=== PATIENT | male | born 1975 | race Hispanic/Latino ===

== ENCOUNTER 2020-07-11 01:51 | Inpatient (IN) | payer OTHER, SELFPAY ==
[2020-07-11] MEDS ORDERED: Fentanyl 100 MCG/2 ML VIAL ONE ×3 (01:59→11:30)
[2020-07-11 02:15] LABS: #Eosinphils 0.4 thou/uL (0.0-0.7); #Lymphocytes 1.8 thou/uL (1.20-3.40); #Monocytes 1.3 thou/uL (0.11-0.59); #Neutrophils 14.5 thou/uL (1.40-6.50); %Basophils 0.3 % (0.0-1.0); %Eosinophils 2.1 % (0.0-10.0); %Monocytes 7.4 % (0.0-10.0); %Neutrophils 80.3 % (42.0-75.0); Mean Corpuscular HGB CONC 32.4 g/dL (32.0-36.0); Mean Corpuscular Hemoglobin 25.9 pg (27.0-31.0); Mean Platelet Volume 8.2 fL (7.4-10.4); Platelet Count 272 thou/uL (130-400); RBC Distribution Width 17.1 % (11.5-14.5); Red Blood Cell (RBC) Count 4.24 mill/uL (4.70-6.10); White Blood Cell (WBC) Count 18.1 thou/uL (4.8-10.8)
[2020-07-11] MEDS ORDERED: Boostrix 0.5 ML (Tdap) VIAL ONE (02:31)
[2020-07-11] MEDS ORDERED: CEFAZOLIN 1 GM VIAL ONE ×2 (02:32→15:49)
[2020-07-11 02:34] LABS: Albumin 3.7 g/dL (3.5-5.0)
[2020-07-11 02:36] LABS: Calcium 7.4 mg/dL (7.8-10.44); Chloride 102 mmol/L (98-107); Potassium 3.5 mmol/L (3.5-5.1); Sodium 135 mmol/L (136-145)
[2020-07-11 02:37] LABS: Globulin 2.9 g/dL (2.4-3.5); Glucose 165 mg/dL (70-105); Protein, Total 6.6 g/dL (6.0-8.3)
[2020-07-11 02:38] LABS: Anion Gap 17 mmol/L (10-20); Carbon Dioxide 20 mmol/L (22-29)
[2020-07-11 02:39] LABS: Bilirubin, Total 0.3 mg/dL (0.2-1.2)
[2020-07-11 02:40] LABS: Alkaline Phosphatase 65 U/L (40-110); Calc. Creatinine Clearance 0 mL/min (70-130)
[2020-07-11 02:41] LABS: BUN (Urea Nitrogen) 10 mg/dL (8.9-20.6)
[2020-07-11 02:42] LABS: AST (SGOT) 51 U/L (5-34)
[2020-07-11 02:43] LABS: ALT (SGPT) 34 U/L (8-55)
[2020-07-11 02:55] LABS: Actual Bicarbonate (HCO3a) 19.3 mEq/L (22-28); Analyzer IN Cardio ER; Base Excess (BEa) -6.2 mEq/L (-2.0 to +3.0); CO2 Tension 37.8 mmHg (35.0-45.0); Carboxyhemoglobin (COHb) 0.3 gm% (0.0-3.0); Hemoglobin (Hb) 10.3 g/dL (14.0-18.0); Potassium - ABG Lab 3.16 mmol/L (3.70-5.30); pH, Arterial 7.33 (7.35-7.45)
[2020-07-11 02:56] LABS: Puncture Site RBA
[2020-07-11] MEDS ORDERED: fentaNYL Citrate/PF 2,000 MCG in Sodium Chloride 0.9% 60 ML IV SCH (03:00)
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
[2020-07-11] MEDS ORDERED: cefTRIAXone\\ROCEPHIN 1 GM VIAL ONE (03:30)
[2020-07-11] MEDS ORDERED: Calcium Chloride 13.6 MEQ in Sodium Chloride 0.9% 100 ML IVPB SCH ×2 (04:00→20:30)
[2020-07-11] MEDS ORDERED: Dextrose 5% in Water 1,000 ML IV PRN (04:12)
[2020-07-11] MEDS ORDERED: Ondansetron ODT 4 MG TAB PO PRN (04:12)
[2020-07-11] MEDS ORDERED: Ventilator Sedation Protocol 1 EACH FS SCH (04:12)
[2020-07-11] MEDS ORDERED: Dextrose 50% Abboject 50 ML SYRINGE SLOW IVP PRN (04:12)
[2020-07-11] MEDS ORDERED: Ondansetron PF 4 MG/2 ML Vial IVP PRN (04:12)
[2020-07-11] MEDS ORDERED: diphenhydrAMINE 50 MG/ML VIAL IVP SCH (04:15)
[2020-07-11] MEDS: Propofol 1,000 MG/100 ML VIAL IV PRN ×3 (04:25→21:02)
[2020-07-11 04:27] VITALS: BMI 34.6
[2020-07-11] MEDS ORDERED: Sodium Chloride 0.9% 1,000 ML IV SCH ×4 (04:30→19:00)
[2020-07-11] MEDS ORDERED: Morphine 2 MG/ML VIAL SLOW IVP PRN (04:30)
[2020-07-11] MEDS ORDERED: Fentanyl BOLUS 250 ML IVPB PRN (04:30)
[2020-07-11] MEDS ORDERED: Lorazepam 2 MG/ML VIAL SLOW IVP PRN (04:30)
[2020-07-11] MEDS ORDERED: Propofol BOLUS 1,000 MG/100 ML VIAL IV PRN (04:30)
[2020-07-11] MEDS ORDERED: DISCONTINUE PREVIOUS NARCOTIC PAIN MEDICATIONS AND BENZODIAZEPINES FS SCH (04:30)
[2020-07-11 04:37] LABS: SARS-CoV-2 NAA Rapid Test Not Detected (NotDetected)
[2020-07-11 06:01] LABS: Magnesium 1.8 mg/dL (1.6-2.6)
[2020-07-11] MEDS ORDERED: Magnesium Sulfate 3 GM in Sodium Chloride 0.9% 250 ML 250 ML IVPB SCH (06:30)
[2020-07-11] MEDS ORDERED: cefTRIAXone\\ROCEPHIN 2 GM in Sodium Chloride 0.9% 100 ML IVPB SCH (06:45)
[2020-07-11 06:55] LABS: Bacteria/HPF None Seen HPF (None Seen); Bilirubin Negative (Negative); Blood, Urine 3+ (Negative); Clarity Clear (Clear); Glucose, Urine (Dipstick) Normal (Negative); Ketone, Urine Negative (Negative); Leukocyte Negative Leu/uL (Negative); Nitrite Negative (Negative); Protein, Urine (Dipstick) Negative (Neg-Trace); RBC/HPF None Seen HPF (0-3); Specific Gravity, Urine 1.034 (1.002-1.036); Squamous Epithelial None Seen HPF (0-3); Urobilinogen Normal mg/dL (Less than 2); WBC/HPF 0-3 HPF (0-3); pH, Urine 5.5 (5.0-9.0)
[2020-07-11 07:04] LABS: Urine Culture Reflex No No
[2020-07-11 07:05] LABS: Cocaine Metabolite Screen Detected (NotDetected); Medtox Reader # READER 4; Methamphetamine Detected (NotDetected); Opiate Screen Not Detected (NotDetected); Phencyclidine (PCP) Not Detected (NotDetected); THC/Cannabinoid Screen Not Detected (NotDetected)
[2020-07-11 07:06] LABS: Amphetamine Detected (NotDetected); Barbiturates Screen Not Detected (NotDetected); Benzodiazepine Screen Not Detected (NotDetected); Medtox Control Line Valid? VALID (VALID); Methadone Not Detected (NotDetected); Oxycodone Screen Not Detected (NotDetected); Tricyclic Screen Not Detected (NotDetected)
[2020-07-11 07:07] LABS: Prothrombin Time 13.5 sec (12.0-14.7)
[2020-07-11 07:16] LABS: Actual Bicarbonate (HCO3a) 19.4 mEq/L (22-28); Base Excess (BEa) -4.7 mEq/L (-2.0 to +3.0); CO2 Tension 32.6 mmHg (35.0-45.0); Calcium, Ionized (arterial) 1.13 mmol/L (1.12-1.30); Carboxyhemoglobin (COHb) 0.5 gm% (0.0-3.0); O2 Tension (PaO2), arterial 148.8 mmHg (80.0-100.0); Potassium - ABG Lab 3.38 mmol/L (3.70-5.30); pH, Arterial 7.39 (7.35-7.45)
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
[2020-07-11 07:57] LABS: Puncture Site RBA
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
[2020-07-11] MEDS: Famotidine/PF 20 mg/2ml Vial SLOW IVP SCH ×2 (08:42→21:01)
[2020-07-11] MEDS ORDERED: FLU VACC QS2020-21(6MOS UP)/PF 60 MCG/0.5 ML SYRINGE IM ONE (09:00)
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
--- NOTE | 2020-07-11 09:31 | RAD ---
PORTABLE CHEST: HISTORY: CCU followup on ventilator. COMPARISON: 07/11/2020. FINDINGS/IMPRESSION: No evidence of confluent infiltrate or consolidation. Congestive changes appear improved. No acute interval change. POS: AGW
[2020-07-11] MEDS: Sodium Chloride 0.9% 1,000 ML IV SCH ×2 (09:32→16:37)
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
[2020-07-11] MEDS ORDERED: Rocuronium Bromide 10 MG/ML (10ML VIAL) ONE (09:43)
[2020-07-11] MEDS ORDERED: ePHEDrine 50 MG/ML VIAL ONE (09:43)
[2020-07-11] MEDS ORDERED: Vecuronium 10 MG VIAL ONE (09:43)
[2020-07-11] MEDS ORDERED: PHENYLEPHRINE-NS 100 MCG/ML 10 ML SYRINGE ONE (09:43)
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
[2020-07-11 10:11] LABS: White Blood Cell (WBC) Count 7.3 thou/uL (4.8-10.8)
[2020-07-11 10:31] LABS: Hemoglobin 9.9 g/dL (14.0-18.0); Mean Corpuscular HGB CONC 32.3 g/dL (32.0-36.0); Mean Corpuscular Hemoglobin 26.2 pg (27.0-31.0); Mean Corpuscular Volume 81.1 fL (78.0-98.0); Mean Platelet Volume 8.1 fL (7.4-10.4); Platelet Count 204 thou/uL (130-400); RBC Distribution Width 16.7 % (11.5-14.5); Red Blood Cell (RBC) Count 3.76 mill/uL (4.70-6.10)
[2020-07-11 10:32] LABS: Band 11 % (5-11); Eosinophils 2 % (0-10); Lymphocytes 33 % (21-51); MDiff Complete? YES; Monocytes 11 % (0-10); Neutrophil 42 % (42-75)
[2020-07-11] MEDS: Acetaminophen 650 MG/20.3 ML UDCUP PO SCH ×3 (11:05→23:04)
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
[2020-07-11] MEDS ORDERED: HYDROmorphone 2 MG/ML VIAL ONE (12:10)
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
[2020-07-11] MEDS ORDERED: Iopamidol-370 76% 500 ML 1 ML ONE (14:21)
[2020-07-11] MEDS ORDERED: Phenylephrine 10 MG/ML VIAL ONE (14:23)
[2020-07-11] MEDS ORDERED: Midazolam HCl 2 mg/2 ml Vial ONE (15:49)
[2020-07-11 17:04] LABS: INR-International Normal Ratio 1.2; PTT 31.5 sec (22.9-36.1); Prothrombin Time 15.7 sec (12.0-14.7)
[2020-07-11 17:16] LABS: Lactic Acid 5.8 mmol/L (0.5-2.2)
[2020-07-11 17:21] LABS: Anisocytosis SLIGHT = 6-15 cells (100X) (0-5/hpf); Band 53 % (5-11); Eosinophils 1 % (0-10); Hemoglobin 11.4 g/dL (14.0-18.0); Lymphocytes 5 % (21-51); MDiff Complete? YES; Mean Corpuscular HGB CONC 32.4 g/dL (32.0-36.0); Mean Corpuscular Hemoglobin 28.2 pg (27.0-31.0); Mean Corpuscular Volume 87.1 fL (78.0-98.0); Mean Platelet Volume 8.3 fL (7.4-10.4); Metamyelocyte 1 % (0-0); Monocytes 9 % (0-10); Myelocyte 1 % (0-0); Neutrophil 28 % (42-75); Platelet Count 172 thou/uL (130-400); Platelet Morphology Comment Appears Adequate; Polychromasia SLIGHT = 2-3 cells (100X) (0-2/hpf); RBC Distribution Width 15.7 % (11.5-14.5); Reactive Lymphocytes 2 % (0-10); Red Blood Cell (RBC) Count 4.06 mill/uL (4.70-6.10); White Blood Cell (WBC) Count 11.7 thou/uL (4.8-10.8)
[2020-07-11 17:22] LABS: Anion Gap 19 mmol/L (10-20); BUN (Urea Nitrogen) 12 mg/dL (8.9-20.6); Calc. Creatinine Clearance 93 mL/min (70-130); Calcium 6.4 mg/dL (7.8-10.44); Carbon Dioxide 15 mmol/L (22-29); Chloride 110 mmol/L (98-107); Glucose 165 mg/dL (70-105); Magnesium 2.2 mg/dL (1.6-2.6); Phosphorus 6.2 mg/dL (2.3-4.7); Potassium 4.7 mmol/L (3.5-5.1); Sodium 139 mmol/L (136-145)
[2020-07-11 18:08] LABS: Actual Bicarbonate (HCO3a) 16.6 mEq/L (22-28); Base Excess (BEa) -10.2 mEq/L (-2.0 to +3.0); CO2 Tension 40.2 mmHg (35.0-45.0); Calcium, Ionized (arterial) 0.88 mmol/L (1.12-1.30); Carboxyhemoglobin (COHb) 1.4 gm% (0.0-3.0); Hemoglobin (Hb) 9.8 g/dL (14.0-18.0); O2 Tension (PaO2), arterial 130.4 mmHg (80.0-100.0); Potassium - ABG Lab 4.38 mmol/L (3.70-5.30)
[2020-07-11 18:14] LABS: pH, Arterial 7.23 (7.35-7.45)
[2020-07-11] MEDS: Sodium Bicarbonate 150 MEQ in Dextrose 5% in Water 1,000 ML IV SCH (21:00)
[2020-07-11] MEDS: Oxazepam 10 MG CAP PO SCH (21:33)
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
[2020-07-12] MEDS: Propofol 1,000 MG/100 ML VIAL IV PRN ×2 (02:28→05:54)
[2020-07-12 04:07] LABS: Anion Gap 15 mmol/L (10-20); BUN (Urea Nitrogen) 17 mg/dL (8.9-20.6); Calc. Creatinine Clearance 93 mL/min (70-130); Carbon Dioxide 18 mmol/L (22-29); Chloride 109 mmol/L (98-107); Glucose 165 mg/dL (70-105); Magnesium 2.2 mg/dL (1.6-2.6); Phosphorus 5.1 mg/dL (2.3-4.7); Potassium 4.2 mmol/L (3.5-5.1); Sodium 138 mmol/L (136-145)
[2020-07-12 04:11] LABS: Calcium 5.9 mg/dL (7.8-10.44)
[2020-07-12 04:14] LABS: Band 14 % (5-11); Hemoglobin 8.5 g/dL (14.0-18.0); Lymphocytes 13 % (21-51); MDiff Complete? YES; Mean Corpuscular HGB CONC 32.6 g/dL (32.0-36.0); Mean Corpuscular Volume 85.9 fL (78.0-98.0); Mean Platelet Volume 8.8 fL (7.4-10.4); Monocytes 16 % (0-10); Neutrophil 57 % (42-75); Platelet Count 116 thou/uL (130-400); Platelet Morphology Comment Appears Decreased; RBC Distribution Width 15.5 % (11.5-14.5); Red Blood Cell (RBC) Count 3.03 mill/uL (4.70-6.10); White Blood Cell (WBC) Count 6.6 thou/uL (4.8-10.8)
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
[2020-07-12] MEDS ORDERED: Calcium Chloride 13.6 MEQ in Sodium Chloride 0.9% 100 ML IVPB SCH (04:30)
[2020-07-12 04:35] LABS: CK (CPK) 11107 U/L (30-200)
[2020-07-12] MEDS: Acetaminophen 650 MG/20.3 ML UDCUP PO SCH ×4 (04:42→23:05)
[2020-07-12] MEDS: Oxazepam 10 MG CAP PO SCH ×3 (05:14→21:04)
[2020-07-12] MEDS: Sodium Bicarbonate 150 MEQ in Dextrose 5% in Water 1,000 ML IV SCH ×2 (05:14→15:23)
[2020-07-12 07:11] LABS: Actual Bicarbonate (HCO3a) 20.5 mEq/L (22-28); Base Excess (BEa) -4.1 mEq/L (-2.0 to +3.0); CO2 Tension 34.7 mmHg (35.0-45.0); Calcium, Ionized (arterial) 0.93 mmol/L (1.12-1.30); Carboxyhemoglobin (COHb) 1.8 gm% (0.0-3.0); Hemoglobin (Hb) 7.1 g/dL (14.0-18.0); O2 Tension (PaO2), arterial 125.9 mmHg (80.0-100.0); Potassium - ABG Lab 3.68 mmol/L (3.70-5.30); pH, Arterial 7.39 (7.35-7.45)
[2020-07-12 07:34] LABS: ALV-art Gradient 80.275 mmHg (0-20); Puncture Site RRA
[2020-07-12] MEDS: Famotidine/PF 20 mg/2ml Vial SLOW IVP SCH ×2 (08:46→21:04)
[2020-07-12] MEDS ORDERED: cefTRIAXone\\ROCEPHIN 2 GM in Sodium Chloride 0.9% 100 ML IVPB SCH (09:00)
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
--- NOTE | 2020-07-12 10:58 | RAD ---
PORTABLE CHEST: HISTORY: Followup respiratory and intubation. CCU followup. COMPARISON: 07/11/2020. FINDINGS/IMPRESSION: ET tube and NG Tube unchanged. Lungs remain well aerated. Patchy atelectasis or infiltrate in the l eft mid lung and in the right lower lung. No other significant change. POS: AGW
[2020-07-12 11:44] LABS: Hemoglobin 7.5 g/dL (14.0-18.0); Mean Corpuscular HGB CONC 31.5 g/dL (32.0-36.0); Mean Corpuscular Hemoglobin 27.4 pg (27.0-31.0); Platelet Count 118 thou/uL (130-400); Red Blood Cell (RBC) Count 2.74 mill/uL (4.70-6.10); White Blood Cell (WBC) Count 6.2 thou/uL (4.8-10.8)
[2020-07-12] MEDS: cloNIDine 0.2 MG TAB PO SCH ×3 (12:31→23:05)
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
--- NOTE | 2020-07-12 13:40 | RAD ---
SUPINE ABDOMEN: Date: 07/12/2020 INDICATION: NG tube placement. FINDINGS/IMPRESSION: A Dobbhoff-type feeding tube has been placed. The tube passes through the EG junction and overlies th e gastric fundus and antrum. The tip of the tube is in the region of the antrum/pylorus. The visualized bowel gas pattern is unremarkable with scattered gas in the colon. POS: AGW
[2020-07-12 16:39] LABS: Hemoglobin 7.3 g/dL (14.0-18.0); Mean Corpuscular HGB CONC 33.1 g/dL (32.0-36.0); Mean Corpuscular Hemoglobin 28.1 pg (27.0-31.0); Mean Platelet Volume 9.1 fL (7.4-10.4); Platelet Count 110 thou/uL (130-400); RBC Distribution Width 15.5 % (11.5-14.5); Red Blood Cell (RBC) Count 2.61 mill/uL (4.70-6.10)
[2020-07-12] MEDS: Piperacillin/Tazobactam 3.375 GM in Sodium Chloride 0.9% 100 ML IVPB SCH ×2 (16:46→21:04)
[2020-07-12 16:54] LABS: Band 36 % (5-11); Eosinophils 3 % (0-10); Hypochromia SLIGHT = 6-15 cells (100X) (0-5/hpf); Lymphocytes 6 % (21-51); MDiff Complete? YES; Monocytes 14 % (0-10); Neutrophil 36 % (42-75); Platelet Morphology Comment Appears Decreased; Polychromasia SLIGHT = 2-3 cells (100X) (0-2/hpf); Reactive Lymphocytes 4 % (0-10)
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
[2020-07-12 17:30] LABS: Anion Gap 12 mmol/L (10-20); BUN (Urea Nitrogen) 10 mg/dL (8.9-20.6); Calc. Creatinine Clearance 147 mL/min (70-130); Calcium 6.5 mg/dL (7.8-10.44); Carbon Dioxide 26 mmol/L (22-29); Chloride 106 mmol/L (98-107); Glucose 144 mg/dL (70-105); Phosphorus 2.2 mg/dL (2.3-4.7); Potassium 3.5 mmol/L (3.5-5.1); Sodium 140 mmol/L (136-145)
[2020-07-12] MEDS ORDERED: Potassium Phosphate 30 MMOL in Sodium Chloride 0.9% 250 ML 250 ML IVPB SCH (18:00)
[2020-07-12] MEDS: Sodium Chloride 0.9% 1,000 ML IV SCH (18:01)
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
[2020-07-12] MEDS: Senokot S 8.6-50 MG TAB PO SCH (21:04)
[2020-07-13] MEDS: Acetaminophen 650 MG/20.3 ML UDCUP PO SCH ×4 (03:55→22:34)
[2020-07-13] MEDS: Piperacillin/Tazobactam 3.375 GM in Sodium Chloride 0.9% 100 ML IVPB SCH ×4 (03:56→22:34)
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
[2020-07-13] MEDS: Morphine 4 MG/ML VIAL SLOW IVP PRN ×2 (05:32→09:02)
[2020-07-13 05:35] LABS: Lactic Acid 1.3 mmol/L (0.5-2.2)
[2020-07-13 05:54] LABS: Anion Gap 11 mmol/L (10-20); BUN (Urea Nitrogen) 9 mg/dL (8.9-20.6); Calc. Creatinine Clearance 165 mL/min (70-130); Calcium 6.1 mg/dL (7.8-10.44); Carbon Dioxide 26 mmol/L (22-29); Chloride 110 mmol/L (98-107); Glucose 138 mg/dL (70-105); Phosphorus 2.8 mg/dL (2.3-4.7); Potassium 3.5 mmol/L (3.5-5.1); Sodium 143 mmol/L (136-145)
[2020-07-13] MEDS: Oxazepam 10 MG CAP PO SCH ×3 (05:59→22:33)
[2020-07-13] MEDS: cloNIDine 0.2 MG TAB PO SCH ×4 (05:59→23:25)
[2020-07-13 06:00] LABS: CK (CPK) 9285 U/L (30-200)
[2020-07-13] MEDS: Sodium Chloride 0.9% 1,000 ML IV SCH ×4 (06:25→22:33)
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
[2020-07-13 06:49] LABS: Anisocytosis SLIGHT = 6-15 cells (100X) (0-5/hpf); Band 14 % (5-11); Hemoglobin 6.1 g/dL (14.0-18.0); Lymphocytes 14 % (21-51); MDiff Complete? YES; Mean Corpuscular HGB CONC 32.9 g/dL (32.0-36.0); Mean Corpuscular Hemoglobin 28.1 pg (27.0-31.0); Mean Corpuscular Volume 85.5 fL (78.0-98.0); Mean Platelet Volume 9.2 fL (7.4-10.4); Monocytes 12 % (0-10); Neutrophil 60 % (42-75); Platelet Count 111 thou/uL (130-400); RBC Distribution Width 15.8 % (11.5-14.5); Red Blood Cell (RBC) Count 2.15 mill/uL (4.70-6.10); White Blood Cell (WBC) Count 6.7 thou/uL (4.8-10.8)
[2020-07-13] MEDS ORDERED: Potassium Phosphate 15 MMOL in Sodium Chloride 0.9% 250 ML 250 ML IVPB SCH (07:30)
[2020-07-13] MEDS: Famotidine/PF 20 mg/2ml Vial SLOW IVP SCH (07:53)
[2020-07-13] MEDS: Senokot S 8.6-50 MG TAB PO SCH ×2 (07:54→22:33)
[2020-07-13] MEDS: Polyethylene Glycol 3350 17 GM Packet PO SCH (07:54)
--- NOTE | 2020-07-13 08:32 | RAD ---
PORTABLE CHEST: HISTORY: Pneumonia. CCU followup. COMPARISON: 07/12/2020. FINDINGS/IMPRESSION: ET tube has been removed. NG tube is in place. Lungs appear well aerated. Linear atelectatic change sin the left lower lung. No confluent consolid ation or infiltrate identified. Mild vascular prominence. No acute interval change. POS: AGW
[2020-07-13] MEDS ORDERED: Rocuronium Bromide 10 MG/ML (10ML VIAL) ONE (11:02)
[2020-07-13] MEDS ORDERED: Lidocaine 1% PF 5 ML VIAL ONE (11:02)
[2020-07-13] MEDS ORDERED: PROPOFOL 200 MG/20 ML VIAL ONE (11:02)
[2020-07-13] MEDS ORDERED: Succinylcholine 200 MG/10 ml SYRINGE FS ONE (11:02)
[2020-07-13] MEDS ORDERED: Fentanyl 100 MCG/2 ML VIAL ONE ×5 (12:51→21:10)
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
[2020-07-13] MEDS ORDERED: Levofloxacin 500 mg/D5W 100 ml Premix Bag ONE (13:20)
[2020-07-13] MEDS ORDERED: Clindamycin/D5W 900 mg/50 ml Premix Bag ONE (13:20)
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
[2020-07-13] MEDS ORDERED: Piperacillin/Tazobactam 3.375 GM VIAL ONE (15:56)
[2020-07-13] MEDS ORDERED: Promethazine HCl 25 MG/ML VIAL SLOW IVP PRN (17:34)
[2020-07-13] MEDS ORDERED: Ondansetron HCl/PF 4 MG/2 ML Vial IVP PRN (17:34)
[2020-07-13] MEDS ORDERED: HYDROmorphone 2 MG/ML VIAL SLOW IVP PRN (17:34)
[2020-07-13] MEDS ORDERED: Promethazine HCl 25 MG/ML VIAL IM PRN (17:34)
[2020-07-13] MEDS ORDERED: Labetalol HCl 100 MG/20 ML VIAL ONE (18:23)
--- NOTE | 2020-07-13 19:13 | RAD ---
XR Elbow Lt 2 View History: ORIF Comparison: Elbow radiographs prior day Findings: 3 spot images were obtained from the operating room. Plate and screw fixation of the commin uted proximal radius and ulnar fractures with extensive radiopaque debris and skin lacerations. Impression: Fluoroscopy for surgical purposes.
--- NOTE | 2020-07-13 21:21 | PRG ---
DATE OF SERVICE: 07/13/2020 SUBJECTIVE: The patient was evaluated in the PACU. He is in the PACU from orthopedic surgery this evening. He is awake and alert in the PACU. OBJECTIVE: VITAL SIGNS: Blood pressure 102/80, temperature 99.7, pulse 101. ABDOMEN: Soft and nontender. GENITOURINARY: Scrotum edematous. Foreskin edematous. Scroto-perineal incision is clean and dry. LABORATORY DATA: White count 6.7, hemoglobin 6.1, hematocrit 18.4. IMPRESSION: Normal postoperative swelling in the scrotum. Incisions are clean and dry. There is no evidence of infection. RECOMMENDATION: No further recommendations at this time. Job ID: [id number]
[2020-07-13] MEDS: Saccharomyces boulardii 250 MG CAP PO SCH (22:33)
[2020-07-13] MEDS: Famotidine 20 MG TAB PO SCH (22:34)
[2020-07-13] MEDS: Cyclobenzaprine 10 MG TAB PO PRN (22:35)
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
[2020-07-14] MEDS: traMADol HCl 50 MG TAB PO PRN ×2 (01:00→11:34)
[2020-07-14] MEDS: Morphine 4 MG/ML VIAL SLOW IVP PRN (01:00)
[2020-07-14] MEDS ORDERED: Gabapentin 300 MG CAP PO SCH ×2 (02:30→14:00)
[2020-07-14] MEDS: Sodium Chloride 0.9% 1,000 ML IV SCH ×3 (02:42→17:21)
[2020-07-14] MEDS: Piperacillin/Tazobactam 3.375 GM in Sodium Chloride 0.9% 100 ML IVPB SCH ×4 (03:44→21:49)
[2020-07-14] MEDS: Acetaminophen 650 MG/20.3 ML UDCUP PO SCH ×4 (05:04→23:31)
[2020-07-14] MEDS: Oxazepam 10 MG CAP PO SCH ×3 (05:05→21:19)
[2020-07-14] MEDS: cloNIDine 0.2 MG TAB PO SCH ×4 (05:05→23:31)
[2020-07-14] MEDS: Gabapentin 300 MG CAP PO SCH ×3 (05:05→21:19)
[2020-07-14 05:18] LABS: #Lymphocytes 0.8 thou/uL (1.20-3.40); #Monocytes 1.4 thou/uL (0.11-0.59); #Neutrophils 7.8 thou/uL (1.40-6.50); %Basophils 0.1 % (0.0-1.0); %Eosinophils 0.1 % (0.0-10.0); %Lymphocytes 7.6 % (21.0-51.0); %Monocytes 14.3 % (0.0-10.0); %Neutrophils 77.9 % (42.0-75.0); Hemoglobin 8.2 g/dL (14.0-18.0); Mean Corpuscular HGB CONC 33.4 g/dL (32.0-36.0); Mean Corpuscular Hemoglobin 30.1 pg (27.0-31.0); Mean Corpuscular Volume 90.1 fL (78.0-98.0); Mean Platelet Volume 9.5 fL (7.4-10.4); Platelet Count 130 thou/uL (130-400); RBC Distribution Width 15.4 % (11.5-14.5); Red Blood Cell (RBC) Count 2.72 mill/uL (4.70-6.10)
[2020-07-14 05:39] LABS: Anion Gap 15 mmol/L (10-20); BUN (Urea Nitrogen) 13 mg/dL (8.9-20.6); Calc. Creatinine Clearance 162 mL/min (70-130); Calcium 6.9 mg/dL (7.8-10.44); Carbon Dioxide 21 mmol/L (22-29); Chloride 108 mmol/L (98-107); Glucose 143 mg/dL (70-105); Magnesium 1.8 mg/dL (1.6-2.6); Phosphorus 2.5 mg/dL (2.3-4.7); Potassium 4.1 mmol/L (3.5-5.1); Sodium 140 mmol/L (136-145)
[2020-07-14 06:04] LABS: CK (CPK) 9676 U/L (30-200)
[2020-07-14] MEDS ORDERED: hydrALAZINE 20 MG/ML VIAL SLOW IVP SCH (06:15)
[2020-07-14] MEDS ORDERED: hydrALAZINE 20 MG/ML VIAL SLOW IVP PRN (06:58)
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
[2020-07-14] MEDS: Senokot S 8.6-50 MG TAB PO SCH ×2 (09:31→21:19)
[2020-07-14] MEDS: Ascorbic Acid 500 mg Chewable Tablet PO SCH ×2 (09:31→21:19)
[2020-07-14] MEDS: Famotidine 20 MG TAB PO SCH ×2 (09:31→21:19)
[2020-07-14] MEDS: Saccharomyces boulardii 250 MG CAP PO SCH ×2 (09:32→21:19)
[2020-07-14] MEDS: Ferrous Sulfate 325 MG TAB PO SCH ×2 (09:32→21:19)
[2020-07-14] MEDS: Polyethylene Glycol 3350 17 GM Packet PO SCH (09:32)
[2020-07-14] MEDS: Cyclobenzaprine 10 MG TAB PO PRN (11:34)
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
[2020-07-15] MEDS: Sodium Chloride 0.9% 1,000 ML IV SCH ×2 (01:05→06:12)
[2020-07-15] MEDS ORDERED: Furosemide 40 MG/4 ML VIAL SLOW IVP SCH (05:15)
[2020-07-15] MEDS: Oxazepam 10 MG CAP PO SCH ×3 (05:19→20:59)
[2020-07-15] MEDS: cloNIDine 0.2 MG TAB PO SCH ×4 (05:19→22:22)
[2020-07-15] MEDS: Gabapentin 300 MG CAP PO SCH ×3 (05:19→20:59)
[2020-07-15] MEDS: Piperacillin/Tazobactam 3.375 GM in Sodium Chloride 0.9% 100 ML IVPB SCH (05:19)
[2020-07-15] MEDS: Acetaminophen 650 MG/20.3 ML UDCUP PO SCH ×4 (05:19→22:21)
[2020-07-15 06:34] LABS: Hemoglobin 8.9 g/dL (14.0-18.0); Mean Corpuscular HGB CONC 32.2 g/dL (32.0-36.0); Mean Corpuscular Hemoglobin 29.2 pg (27.0-31.0); Mean Corpuscular Volume 90.6 fL (78.0-98.0); Platelet Count 162 thou/uL (130-400); RBC Distribution Width 16.1 % (11.5-14.5); Red Blood Cell (RBC) Count 3.05 mill/uL (4.70-6.10); White Blood Cell (WBC) Count 10.5 thou/uL (4.8-10.8)
[2020-07-15 06:41] LABS: Anion Gap 15 mmol/L (10-20); BUN (Urea Nitrogen) 15 mg/dL (8.9-20.6); Calc. Creatinine Clearance 176 mL/min (70-130); Calcium 7.2 mg/dL (7.8-10.44); Carbon Dioxide 20 mmol/L (22-29); Chloride 107 mmol/L (98-107); Glucose 113 mg/dL (70-105); Magnesium 1.8 mg/dL (1.6-2.6); Potassium 3.7 mmol/L (3.5-5.1); Sodium 138 mmol/L (136-145)
[2020-07-15 06:54] LABS: CK (CPK) 5316 U/L (30-200)
--- NOTE | 2020-07-15 08:07 | RAD ---
Portable frontal chest radiograph: 07/15/2020 COMPARISON: 07/13/2020 HISTORY: Short of breath FINDINGS: The Dobbhoff feeding tube has been removed since the prior exam. The cardiac silhouette is prominent. There is diffuse interstitial prominence with a perihilar/bibasilar predominance. Parabronchial cuffing noted in the perihilar regions. No lobar consolidation. Hazy groundglass opacit y suspected in the perihilar regions and both lung bases. IMPRESSION: Perihilar and bibasilar interstitial prominence with parabronchial cuffing and superimpos ed groundglass opacity. Findings may be related to interval development of pulmonary edema or atypical infectious pneumonitis, such as Covid 19.
[2020-07-15] MEDS ORDERED: Metolazone 2.5 MG TAB PO SCH (08:30)
[2020-07-15] MEDS ORDERED: Magnesium 2 GM/50 ML 2 GM in Premix Bag 1 BAG IVPB SCH (09:45)
[2020-07-15 10:01] LABS: Band 10 % (5-11); Eosinophils 2 % (0-10); Lymphocytes 8 % (21-51); MDiff Complete? YES; Monocytes 15 % (0-10); Myelocyte 1 % (0-0); Neutrophil 64 % (42-75); Nucleated RBC 1 % (0); Platelet Morphology Comment Appears Adequate; Polychromasia MODERATE = 3-4 cells (100X) (0-2/hpf)
[2020-07-15] MEDS: Famotidine 20 MG TAB PO SCH (10:13)
[2020-07-15] MEDS: Saccharomyces boulardii 250 MG CAP PO SCH (10:13)
[2020-07-15] MEDS: Enoxaparin Sodium 40 MG/0.4 ML SYRINGE SC SCH (10:26)
[2020-07-15] MEDS: Amlodipine 10 MG TAB PO SCH (10:26)
[2020-07-15] MEDS: Ascorbic Acid 500 mg Chewable Tablet PO SCH ×2 (10:27→20:58)
[2020-07-15] MEDS: Ferrous Sulfate 325 MG TAB PO SCH ×2 (10:27→20:59)
[2020-07-15] MEDS: Polyethylene Glycol 3350 17 GM Packet PO SCH (10:28)
[2020-07-15] MEDS: Senokot S 8.6-50 MG TAB PO SCH ×2 (10:28→20:59)
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
[2020-07-15] MEDS: PHOS-NAK 1 PKT PACK PO SCH ×2 (17:15→20:58)
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
[2020-07-15] MEDS: Cyclobenzaprine 10 MG TAB PO PRN (22:21)
[2020-07-16 03:18] LABS: SARS-CoV-2 MS2 Positive; SARS-CoV-2 N Gene Negative; SARS-CoV-2 S Gene Negative; SARS-CoV-2 by NAA Not Detected (NotDetected); SARS-CoV-2 orf1ab Negative
[2020-07-16] MEDS: Acetaminophen 650 MG/20.3 ML UDCUP PO SCH ×4 (04:33→22:25)
[2020-07-16] MEDS: traMADol HCl 50 MG TAB PO PRN ×2 (04:33→16:41)
[2020-07-16] MEDS: Gabapentin 300 MG CAP PO SCH ×3 (05:31→22:23)
[2020-07-16] MEDS: Oxazepam 10 MG CAP PO SCH ×3 (05:31→22:23)
[2020-07-16] MEDS: cloNIDine 0.2 MG TAB PO SCH ×3 (05:31→18:32)
[2020-07-16] MEDS: Amlodipine 10 MG TAB PO SCH (08:19)
[2020-07-16] MEDS: Ascorbic Acid 500 mg Chewable Tablet PO SCH ×2 (08:20→20:35)
[2020-07-16] MEDS: Ferrous Sulfate 325 MG TAB PO SCH ×2 (08:20→20:35)
[2020-07-16] MEDS: PHOS-NAK 1 PKT PACK PO SCH (08:20)
[2020-07-16] MEDS: Polyethylene Glycol 3350 17 GM Packet PO SCH (08:20)
[2020-07-16] MEDS: Senokot S 8.6-50 MG TAB PO SCH ×2 (08:20→20:35)
[2020-07-16] MEDS: Enoxaparin Sodium 40 MG/0.4 ML SYRINGE SC SCH (08:20)
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
[2020-07-17] MEDS: cloNIDine 0.2 MG TAB PO SCH ×4 (01:00→17:18)
[2020-07-17] MEDS: traMADol HCl 50 MG TAB PO PRN ×3 (01:05→15:08)
[2020-07-17] MEDS: Acetaminophen 650 MG/20.3 ML UDCUP PO SCH ×3 (06:00→17:17)
[2020-07-17] MEDS: Gabapentin 300 MG CAP PO SCH ×3 (06:17→21:03)
[2020-07-17] MEDS: Oxazepam 10 MG CAP PO SCH ×3 (06:21→21:03)
[2020-07-17] MEDS: Enoxaparin Sodium 40 MG/0.4 ML SYRINGE SC SCH (08:07)
[2020-07-17] MEDS: Ascorbic Acid 500 mg Chewable Tablet PO SCH ×2 (08:07→20:42)
[2020-07-17] MEDS: Ferrous Sulfate 325 MG TAB PO SCH ×2 (08:07→20:42)
[2020-07-17] MEDS: Amlodipine 10 MG TAB PO SCH (08:08)
[2020-07-17] MEDS: Senokot S 8.6-50 MG TAB PO SCH ×2 (11:27→20:42)
[2020-07-17] MEDS: Polyethylene Glycol 3350 17 GM Packet PO SCH (11:27)
[2020-07-17] MEDS: Acetaminophen 500 MG TAB PO SCH (19:25)
[2020-07-17] MEDS: Ibuprofen 600 MG TAB PO SCH (21:02)
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
[2020-07-18] MEDS: Acetaminophen 500 MG TAB PO SCH ×4 (00:28→17:49)
[2020-07-18] MEDS: cloNIDine 0.2 MG TAB PO SCH ×4 (00:30→17:49)
[2020-07-18] MEDS: Oxazepam 10 MG CAP PO SCH ×3 (06:01→21:35)
[2020-07-18] MEDS: Gabapentin 300 MG CAP PO SCH ×3 (06:02→21:33)
[2020-07-18] MEDS: Ibuprofen 600 MG TAB PO SCH ×3 (06:02→21:34)
[2020-07-18] MEDS: Ascorbic Acid 500 mg Chewable Tablet PO SCH ×2 (08:51→21:44)
[2020-07-18] MEDS: Ferrous Sulfate 325 MG TAB PO SCH ×2 (08:51→21:36)
[2020-07-18] MEDS: Senokot S 8.6-50 MG TAB PO SCH ×2 (08:52→21:42)
[2020-07-18] MEDS: Enoxaparin Sodium 40 MG/0.4 ML SYRINGE SC SCH (08:52)
[2020-07-18] MEDS: Amlodipine 10 MG TAB PO SCH (08:52)
[2020-07-18] MEDS: Polyethylene Glycol 3350 17 GM Packet PO SCH (08:52)
[2020-07-18] MEDS: traMADol HCl 50 MG TAB PO PRN (12:39)
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
[2020-07-18] MEDS: Cyclobenzaprine 10 MG TAB PO PRN (21:33)
[2020-07-19] MEDS: cloNIDine 0.2 MG TAB PO SCH ×5 (00:41→23:22)
[2020-07-19] MEDS: traMADol HCl 50 MG TAB PO SCH ×5 (00:42→23:22)
[2020-07-19] MEDS: Acetaminophen 500 MG TAB PO SCH ×4 (00:43→17:36)
[2020-07-19] MEDS: traMADol HCl 50 MG TAB PO PRN (03:32)
[2020-07-19] MEDS: Ibuprofen 600 MG TAB PO SCH ×3 (06:33→21:06)
[2020-07-19] MEDS: Gabapentin 300 MG CAP PO SCH ×3 (06:34→21:07)
[2020-07-19] MEDS: Oxazepam 10 MG CAP PO SCH ×3 (06:36→21:06)
[2020-07-19] MEDS: Ascorbic Acid 500 mg Chewable Tablet PO SCH ×2 (08:33→21:08)
[2020-07-19] MEDS: Cyclobenzaprine 10 MG TAB PO PRN (08:33)
[2020-07-19] MEDS: Amlodipine 10 MG TAB PO SCH (08:33)
[2020-07-19] MEDS: Ferrous Sulfate 325 MG TAB PO SCH ×2 (08:33→21:08)
[2020-07-19] MEDS: Polyethylene Glycol 3350 17 GM Packet PO SCH (08:34)
[2020-07-19] MEDS: Senokot S 8.6-50 MG TAB PO SCH ×2 (08:34→21:06)
[2020-07-19] MEDS: Enoxaparin Sodium 40 MG/0.4 ML SYRINGE SC SCH (08:34)
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
[2020-07-20] MEDS: Acetaminophen 500 MG TAB PO SCH ×4 (00:19→18:10)
[2020-07-20] MEDS: traMADol HCl 50 MG TAB PO PRN (01:55)
[2020-07-20] MEDS: cloNIDine 0.2 MG TAB PO SCH ×3 (05:11→18:11)
[2020-07-20] MEDS: Oxazepam 10 MG CAP PO SCH ×3 (05:12→21:36)
[2020-07-20] MEDS: Gabapentin 300 MG CAP PO SCH ×3 (05:12→21:35)
[2020-07-20] MEDS: Ibuprofen 600 MG TAB PO SCH ×3 (05:13→21:36)
[2020-07-20] MEDS: traMADol HCl 50 MG TAB PO SCH ×3 (05:14→18:10)
[2020-07-20 05:26] LABS: #Lymphocytes 1.6 thou/uL (1.20-3.40); #Monocytes 1.3 thou/uL (0.11-0.59); #Neutrophils 6.5 thou/uL (1.40-6.50); %Basophils 0.4 % (0.0-1.0); %Eosinophils 9.4 % (0.0-10.0); %Lymphocytes 15.4 % (21.0-51.0); %Monocytes 12.6 % (0.0-10.0); %Neutrophils 62.2 % (42.0-75.0); Hemoglobin 10.6 g/dL (14.0-18.0); Mean Corpuscular HGB CONC 32.9 g/dL (32.0-36.0); Mean Corpuscular Volume 91.2 fL (78.0-98.0); Mean Platelet Volume 7.9 fL (7.4-10.4); Platelet Count 465 thou/uL (130-400); RBC Distribution Width 18.3 % (11.5-14.5); Red Blood Cell (RBC) Count 3.53 mill/uL (4.70-6.10); White Blood Cell (WBC) Count 10.5 thou/uL (4.8-10.8)
[2020-07-20 05:48] LABS: Anion Gap 13 mmol/L (10-20); BUN (Urea Nitrogen) 18 mg/dL (8.9-20.6); CK (CPK) 398 U/L (30-200); Calc. Creatinine Clearance 200 mL/min (70-130); Calcium 8.2 mg/dL (7.8-10.44); Carbon Dioxide 24 mmol/L (22-29); Chloride 103 mmol/L (98-107); Glucose 100 mg/dL (70-105); Phosphorus 3.7 mg/dL (2.3-4.7); Potassium 4.4 mmol/L (3.5-5.1); Sodium 136 mmol/L (136-145)
--- NOTE | 2020-07-20 08:10 | RAD ---
PORTABLE CHEST 1 VIEW: DATE: 07/20/2020. TIME: 5:01 AM. HISTORY: Shortness of breath, followup. COMPARISON: 07/15/2020. FINDINGS: The heart size is prominent but stable. The lungs are expanded without lobar consolidation, pneumoth oraces, pulmonary edema, or pleural effusions. IMPRESSION: No acute process. POS: OFF
[2020-07-20] MEDS: Ferrous Sulfate 325 MG TAB PO SCH ×2 (08:29→21:35)
[2020-07-20] MEDS: Polyethylene Glycol 3350 17 GM Packet PO SCH (08:29)
[2020-07-20] MEDS: Ascorbic Acid 500 mg Chewable Tablet PO SCH ×2 (08:29→21:35)
[2020-07-20] MEDS: Senokot S 8.6-50 MG TAB PO SCH ×2 (08:29→22:55)
[2020-07-20] MEDS: Amlodipine 10 MG TAB PO SCH (08:30)
[2020-07-20] MEDS: Enoxaparin Sodium 40 MG/0.4 ML SYRINGE SC SCH (08:30)
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
[2020-07-21] MEDS: traMADol HCl 50 MG TAB PO SCH ×5 (00:11→23:25)
[2020-07-21] MEDS: Acetaminophen 500 MG TAB PO SCH ×5 (00:12→23:27)
[2020-07-21] MEDS: cloNIDine 0.2 MG TAB PO SCH ×5 (00:12→23:27)
[2020-07-21] MEDS: Ibuprofen 600 MG TAB PO SCH ×3 (05:14→21:03)
[2020-07-21] MEDS: Gabapentin 300 MG CAP PO SCH ×3 (05:15→21:05)
[2020-07-21] MEDS: Oxazepam 10 MG CAP PO SCH ×3 (05:16→21:05)
[2020-07-21] MEDS: Enoxaparin Sodium 40 MG/0.4 ML SYRINGE SC SCH (08:49)
[2020-07-21] MEDS: Ascorbic Acid 500 mg Chewable Tablet PO SCH ×2 (08:49→21:04)
[2020-07-21] MEDS: Ferrous Sulfate 325 MG TAB PO SCH ×2 (08:49→21:04)
[2020-07-21] MEDS: Polyethylene Glycol 3350 17 GM Packet PO SCH (08:50)
[2020-07-21] MEDS: Senokot S 8.6-50 MG TAB PO SCH ×2 (08:52→21:05)
[2020-07-21] MEDS: Amlodipine 10 MG TAB PO SCH (09:01)
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
[2020-07-22] MEDS: cloNIDine 0.2 MG TAB PO SCH ×3 (05:43→18:58)
[2020-07-22] MEDS: Acetaminophen 500 MG TAB PO SCH ×2 (05:44→12:37)
[2020-07-22] MEDS: Gabapentin 300 MG CAP PO SCH ×2 (05:44→14:52)
[2020-07-22] MEDS: traMADol HCl 50 MG TAB PO SCH ×3 (05:44→18:58)
[2020-07-22] MEDS: Ibuprofen 600 MG TAB PO SCH ×2 (05:44→14:54)
[2020-07-22] MEDS: Polyethylene Glycol 3350 17 GM Packet PO SCH (09:25)
[2020-07-22] MEDS: Senokot S 8.6-50 MG TAB PO SCH (09:25)
[2020-07-22] MEDS: Amlodipine 10 MG TAB PO SCH (09:26)
[2020-07-22] MEDS: Ascorbic Acid 500 mg Chewable Tablet PO SCH (09:26)
[2020-07-22] MEDS: Enoxaparin Sodium 40 MG/0.4 ML SYRINGE SC SCH (09:26)
[2020-07-22] MEDS: Ferrous Sulfate 325 MG TAB PO SCH (09:26)
[2020-07-22 16:39] VITALS: TEMP 99.7
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
[2020-07-22 18:59] VITALS: BP 147/88
[2020-08-04 09:47] LABS: Actual Bicarbonate (HCO3a) 22.2 mEq/L (22-28); Analyzer IN Cardio OR; Base Excess (BEa) -2.2 mEq/L (-2.0 to +3.0); Calcium, Ionized (arterial) 1.02 mmol/L (1.12-1.30); Carboxyhemoglobin (COHb) 2.2 gm% (0.0-3.0); Hemoglobin (Hb) 6.4 g/dL (14.0-18.0); O2 Tension (PaO2), arterial 214.3 mmHg (80.0-100.0); pH, Arterial 7.41 (7.35-7.45)
[2020-08-04 10:18] LABS: Puncture Site Arterial Line
== END 2020-07-22 18:04 | disposition home or self-care (01) | DRG 956 ==
LOC: ERS 01:51 → EDBD 02:26 → CCU 02:26 → EEVIPCON 02:26 → SURG A 07-13 13:33 → SJJU 07-13 22:07
PROVIDERS: ADMIT Surgery; ATTEND Surgery
PROC: 0QS806Z Reposition Right Femoral Shaft with Intramedullary Internal Fixation Device, Open Approach (ICD-10-PCS; principal; 2020-07-11)
PROC: 0WCG0ZZ Extirpation of Matter from Peritoneal Cavity, Open Approach (ICD-10-PCS; 2020-07-11)
PROC: 0BH17EZ Insertion of Endotracheal Airway into Trachea, Via Natural or Artificial Opening (ICD-10-PCS; 2020-07-11)
PROC: 0JCH0ZZ Extirpation of Matter from Left Lower Arm Subcutaneous Tissue and Fascia, Open Approach (ICD-10-PCS; 2020-07-11)
PROC: 5A1935Z Respiratory Ventilation, Less than 24 Consecutive Hours (ICD-10-PCS; 2020-07-11)
PROC: 0T9B70Z Drainage of Bladder with Drainage Device, Via Natural or Artificial Opening (ICD-10-PCS; 2020-07-11)
PROC: 30233L1 Transfusion of Nonautologous Fresh Plasma into Peripheral Vein, Percutaneous Approach (ICD-10-PCS; 2020-07-11)
PROC: 30233N1 Transfusion of Nonautologous Red Blood Cells into Peripheral Vein, Percutaneous Approach (ICD-10-PCS; 2020-07-11)
PROC: 30233K1 Transfusion of Nonautologous Frozen Plasma into Peripheral Vein, Percutaneous Approach (ICD-10-PCS; 2020-07-11)
PROC: 0PSJ04Z Reposition Left Radius with Internal Fixation Device, Open Approach (ICD-10-PCS; 2020-07-13)
PROC: 0PSL04Z Reposition Left Ulna with Internal Fixation Device, Open Approach (ICD-10-PCS; 2020-07-13)
PROC: 0PUJ07Z Supplement Left Radius with Autologous Tissue Substitute, Open Approach (ICD-10-PCS; 2020-07-13)
PROC: 01N40ZZ Release Ulnar Nerve, Open Approach (ICD-10-PCS; 2020-07-13)
DX: S72.351B Displaced comminuted fracture of shaft of right femur, initial encounter for open fracture type I or II (principal); S52.102B Unspecified fracture of upper end of left radius, initial encounter for open fracture type I or II; S52.252B Displaced comminuted fracture of shaft of ulna, left arm, initial encounter for open fracture type I or II; J96.01 Acute respiratory failure with hypoxia; N17.9 Acute kidney failure, unspecified; D62 Acute posthemorrhagic anemia; Z20.828 Contact with and (suspected) exposure to other viral communicable diseases; S31.149A Puncture wound of abdominal wall with foreign body, unspecified quadrant without penetration into peritoneal cavity, initial encounter; S72.112 Displaced fracture of greater trochanter of left femur; T79.6XXA Traumatic ischemia of muscle, initial encounter; S31.33XA Puncture wound without foreign body of scrotum and testes, initial encounter; S81.842A Puncture wound with foreign body, left lower leg, initial encounter; S44.02XA Injury of ulnar nerve at upper arm level, left arm, initial encounter; F15.10 Other stimulant abuse, uncomplicated; F14.10 Cocaine abuse, uncomplicated; F10.129 Alcohol abuse with intoxication, unspecified; W32.0XXA Accidental handgun discharge, initial encounter; E87.6 Hypokalemia; E83.39 Other disorders of phosphorus metabolism; E87.70 Fluid overload, unspecified
CPT/HCPCS: 31500; 36415; 36416; 36430; 36600; 70450; 71045; 72170; 74018; 74177; 76000; 80048; 80053; 80306; 81001; 82550; 82805; 83605; 83735; 84100; 85025; 85610; 85730; 86850; 86900; 86901; 87040; 87070; 87086; 87149; 87205; 87635; 90471; 90715; 94002; 94003; 96365; 96366; 96368; 96374; 96375; 96376; C1713; G0390; J0360; J0690; J0696; J1170; J1200; J1650; J1940; J1956; J2060; J2250; J2270; J2370; J2543; J2704; J3010; J3475; J3490; J7050; J7070; P9016; P9045; P9059; Q9967; S0028; U0002; U0003